=== PATIENT | female | born 1990 | race African-American/Black ===

== ENCOUNTER 2017-06-18 18:17 | Emergency (ER) | payer MEDICAID, OTHER, SELFPAY ==
[2017-06-18 19:01] LABS: Bilirubin Negative (Negative); Blood, Urine Negative (Negative); Glucose, Urine (Dipstick) Negative (Negative); Ketone, Urine Negative (Negative); Nitrite Negative (Negative); Protein, Urine (Dipstick) Negative (Neg-Trace)
[2017-06-18 19:03] LABS: #Basophils 0.1 thou/uL (0.0-0.2); #Eosinphils 0.2 thou/uL (0.0-0.7); #Lymphocytes 3.3 thou/uL (1.20-3.40); #Monocytes 0.5 thou/uL (0.11-0.59); #Neutrophils 6.5 thou/uL (1.40-6.50); %Eosinophils 1.7 % (0.0-10.0); %Lymphocytes 31.1 % (21.0-51.0); %Monocytes 4.5 % (0.0-10.0); Hematocrit 42.2 % (36.0-47.0); Red Blood Cell (RBC) Count 4.95 mill/uL (4.20-5.40); White Blood Cell (WBC) Count 10.5 thou/uL (4.8-10.8)
[2017-06-18 19:26] LABS: ALT (SGPT) 12 U/L (8-55); AST (SGOT) 13 U/L (5-34); Alkaline Phosphatase 88 U/L (40-150); Anion Gap 9 mmol/L (10-20); BUN (Urea Nitrogen) 12 mg/dL (7.0-18.7); Bilirubin, Total 0.4 mg/dL (0.2-1.2); Calc. Creatinine Clearance 0 mL/min (70-130); Calcium 10.1 mg/dL (7.8-10.44); Carbon Dioxide 29 mmol/L (22-29); Chloride 104 mmol/L (98-107); Estimated GFR-MDRD 80; Globulin 3.8 g/dL (2.4-3.5); Lipase 28 U/L (8-78); Protein, Total 7.7 g/dL (6.0-8.3)
== END 2017-06-18 19:47 | disposition home or self-care (01) ==
LOC: ERS 18:17
DX: R10.13 Epigastric pain (principal); F32.9 Major depressive disorder, single episode, unspecified; F41.9 Anxiety disorder, unspecified; E66.9 Obesity, unspecified; D64.9 Anemia, unspecified; J45.909 Unspecified asthma, uncomplicated; Z79.899 Other long term (current) drug therapy
CPT/HCPCS: 36415; 80053; 81003; 83690; 84703; 85025; 99284

== ENCOUNTER 2017-07-18 08:26 | Emergency (ER) | payer SELFPAY ==
[2017-07-18] MEDS ORDERED: predniSONE 20 MG TAB ONE (09:15)
--- NOTE | 2017-07-18 09:52 | RAD ---
2 VIEWS CHEST: Date: 07/18/17 COMPARISON: None. HISTORY: Asthma, shortness of breath. FINDINGS: No pneumothorax, pleural fluid, focal consolidation, or alveolar edema. Heart and mediastinal contour is grossly unremarkable. IMPRESSION: No acute findings. POS: [facility]
== END 2017-07-18 10:50 | disposition home or self-care (01) ==
LOC: ERS 08:26
DX: J45.901 Unspecified asthma with (acute) exacerbation (principal); F41.9 Anxiety disorder, unspecified; F32.9 Major depressive disorder, single episode, unspecified; E66.9 Obesity, unspecified; Z79.899 Other long term (current) drug therapy
CPT/HCPCS: 71020; 94640; J7506; J7620